=== PATIENT | female | born 1985 | race Caucasian/White ===

== ENCOUNTER 2017-08-04 22:28 | Emergency (ER) | payer MEDICAID ==
[2017-08-04 22:46] VITALS: BP 135/83
== END 2017-08-04 23:25 | disposition home or self-care (01) ==
LOC: ED 22:28
DX: L30.9 Dermatitis, unspecified (principal)

== ENCOUNTER 2017-08-26 10:02 | Emergency (ER) | payer MEDICAID ==
[2017-08-26 13:46] VITALS: BP 117/61
== END 2017-08-26 13:54 | disposition home or self-care (01) ==
LOC: ED 10:02
DX: G43.909 Migraine, unspecified, not intractable, without status migrainosus (principal); R11.2 Nausea with vomiting, unspecified
CPT/HCPCS: J1200; J2765; J3490; J7030

== ENCOUNTER 2019-10-27 17:27 | Emergency (ER) | payer MEDICAID ==
[~2019-10-27] VITALS: Ht 160 cm; Wt 88.5 kg
[2019-10-27 17:48] VITALS: Ht 160 cm; Wt 88.5 kg
[2019-10-27 19:41] VITALS: BP 106/56
== END 2019-10-27 19:41 | disposition home or self-care (01) ==
LOC: ED 17:27
DX: R51 Headache (principal); R11.2 Nausea with vomiting, unspecified
CPT/HCPCS: J1885; J2765